=== PATIENT | male | born 1955 | race Hispanic/Latino ===

== ENCOUNTER → 2023-01-01 | Outpatient (CLI) | payer OTHER ==
[~2023-01-01] MED LIST: ALLO300T2 PO; BISA-72 PO; GADOTERATE MEGLUMINE 10 MMOL/20 ML VIAL IV ONE; MECL-160 PO; METF-446 PO; PREG75CA75 PO; ROSU20TA31 PO; TAMS-1 PO; TIZA2CAP9 PO; TRAM-355 PO
== END | disposition home or self-care (01) ==
LOC: RAH 08:15
PROVIDERS: ATTEND Family Medicine
DX: M48.061 Spinal stenosis, lumbar region without neurogenic claudication (principal); G06.2 Extradural and subdural abscess, unspecified; M86.9 Osteomyelitis, unspecified
CPT/HCPCS: 72158; A9575

== ENCOUNTER → 2023-05-12 | Outpatient (CLI) | payer OTHER ==
[~2023-05-12] MED LIST changes: -GADOTERATE MEGLUMINE 10 MMOL/20 ML VIAL IV ONE; -ROSU20TA31 PO; +ROSU20TA73 PO
== END | disposition home or self-care (01) ==
LOC: LAB 14:16
PROVIDERS: ATTEND Family Medicine
DX: M86.40 Chronic osteomyelitis with draining sinus, unspecified site (principal); M86.9 Osteomyelitis, unspecified
CPT/HCPCS: 36415; 82565; 84520

== ENCOUNTER → 2023-05-14 | Outpatient (CLI) | payer OTHER ==
[~2023-05-14] MED LIST changes: +GADOTERATE MEGLUMINE 10 MMOL/20 ML VIAL IV ONE
== END | disposition home or self-care (01) ==
LOC: RAH 10:37
PROVIDERS: ATTEND Family Medicine
DX: M47.816 Spondylosis without myelopathy or radiculopathy, lumbar region (principal); M48.061 Spinal stenosis, lumbar region without neurogenic claudication; M86.9 Osteomyelitis, unspecified
CPT/HCPCS: 72158; A9575

== ENCOUNTER 2023-08-28 05:42 | Day surgery (SDC) | payer OTHER ==
[2023-08-26 11:56] LABS: CREATININE 1.5 mg/dL (0.5-1.5); POTASSIUM 4.4 mmol/L (3.5-5.1)
[2023-08-26 12:00] LABS: INR 1.04 (0.85-1.15)
[2023-08-26 12:01] LABS: PARTIAL THROMBOPLASTIN TIME 31.3 SEC (26.3-35.5)
[2023-08-26 12:29] VITALS: BP 108/66; PULSE 71; RESP 18
[~2023-08-28] VITALS: Ht 182.9 cm; Wt 118.8 kg
[2023-08-28] VITALS (8 sets, daily range): BP systolic 112–139; BP diastolic 68–75; PULSE 60–65; RESP 14–16
[~2023-08-28 05:42] MED LIST changes: +ALPR1TAB2 PO; +ASPI-1012 PO; +ATOR40TA71 PO; -BISA-72 PO; +DOCU-280 PO; +FAMO20TA8 PO; +FURO20TA4 PO; -GADOTERATE MEGLUMINE 10 MMOL/20 ML VIAL IV ONE; +GARL1000 PO; +HYDR-4068 PO; +IRON150C5 PO; -MECL-160 PO; +OLME5TAB29 PO; +POTA-202 PO; -PREG75CA75 PO; +PREG75CA76 PO; -ROSU20TA73 PO; -TIZA2CAP9 PO; -TRAM-355 PO; +VITA100049 PO; +[UNRECOGNIZED DRUG - OTHER] PO
[2023-08-28] MEDS ORDERED: IOHEXOL 180 MG/ML 20 ML VIAL ONE (07:08)
== END 2023-08-28 10:40 | disposition home or self-care (01) ==
LOC: DAH 05:42 → EDSTATUS 11:00
PROVIDERS: ATTEND Neurological Surgery
DX: M48.061 Spinal stenosis, lumbar region without neurogenic claudication (principal); M47.817 Spondylosis without myelopathy or radiculopathy, lumbosacral region; G03.8 Meningitis due to other specified causes; G06.1 Intraspinal abscess and granuloma; E11.9 Type 2 diabetes mellitus without complications; Z79.84 Long term (current) use of oral hypoglycemic drugs; Z79.82 Long term (current) use of aspirin; Z79.01 Long term (current) use of anticoagulants; Z79.899 Other long term (current) drug therapy
CPT/HCPCS: 80048; 85610; 85730; 36415; 62304; 72132; 82948; Q9965; A4215; A4222; A4221; A4663; A4216; A4606; A4223 ×3

== ENCOUNTER 2023-09-17 05:56 | Observation (INO) | payer OTHER ==
[2023-09-15 11:50] LABS: BASOPHILS % (AUTO) 0.8 % (0.0-5.0); EOSINOPHILS # (AUTO) 0.32 K/uL (0.00-0.70); EOSINOPHILS % (AUTO) 2.6 % (0.0-8.0); HEMATOCRIT 44.3 % (42-54); IMMATURE GRANULOCYTE ABSOLUTE 0.06 K/uL (0-1); LYMPHOCYTES # (AUTO) 2.5 K/uL (1.0-4.8); LYMPHOCYTES % (AUTO) 19.6 % (21.0-51.0); MEAN CORPUSCULAR HGB CONC 31.2 g/dL (32.0-36.0); MONOCYTES # (AUTO) 1.1 K/uL (0.1-1.0); MONOCYTES % (AUTO) 8.5 % (3.0-13.0); NEUTROPHILS # (AUTO) 8.5 K/uL (1.8-7.7); PLATELET COUNT (AUTO) 366 K/uL (130-400); RED BLOOD CELL COUNT(AUTO) 4.92 MIL/uL (4.50-6.20); RED CELL DISTRIBUTION WIDTH 14.2 % (11.0-15.5); WHITE BLOOD COUNT (AUTO) 12.5 K/uL (4.8-10.8)
[2023-09-15 12:13] LABS: CREATININE 1.7 mg/dL (0.5-1.5)
[2023-09-15 14:39] VITALS: BP 93/55; PULSE 73; RESP 16
[2023-09-17] VITALS (25 sets, daily range): BP systolic 91–128; BP diastolic 54–80; PULSE 56–90; RESP 12–21; O2SAT 98
[~2023-09-17] VITALS: Ht 182.9 cm; Wt 118.1 kg
[~2023-09-17 05:56] MED LIST changes: +ALLO100T PO; -ALLO300T2 PO; -FAMO20TA8 PO; +METF-444 PO; -METF-446 PO; +PREG100C56 PO; -PREG75CA76 PO
[2023-09-17] MEDS ORDERED: CEFAZOLIN SODIUM 2 GM VIAL ONE (06:15)
[2023-09-17] MEDS ORDERED: CEFAZOLIN SODIUM 1 GM VIAL ONE ×2 (06:15→06:49)
[2023-09-17] MEDS ORDERED: 0.9%NACL 1000ML 1,000 ML IV ONE (06:15)
[2023-09-17] MEDS ORDERED: LIDOCAINE PF 100MG/5ML (2%) SYRINGE 5ML ONE (06:46)
[2023-09-17] MEDS ORDERED: SUCCINYLCHOLINE CHLORIDE 20 MG/ML 10 ML VIAL ONE (06:46)
[2023-09-17] MEDS ORDERED: MIDAZOLAM HCL 1 MG/ML 2ML VIAL ONE (06:47)
[2023-09-17] MEDS ORDERED: ONDANSETRON 4MG INJ ONE ×2 (06:47→06:51)
[2023-09-17] MEDS ORDERED: PROPOFOL 10 MG/ML 20ML VIAL IV ONE ×2 (06:47→06:50)
[2023-09-17] MEDS ORDERED: NEOSTIGMINE 5MG/5ML SYR IV ONE (06:47)
[2023-09-17] MEDS ORDERED: DEXAMETHASONE SOD PHOSPHATE 10MG/ML 1ML VIAL ONE ×2 (06:47→06:51)
[2023-09-17] MEDS ORDERED: GLYCOPYRROLATE 1 MG/5 ML SYRINGE ONE (06:47)
[2023-09-17] MEDS ORDERED: MORPHINE PF 100MG/10ML AMP IV ONE (06:48)
[2023-09-17] MEDS ORDERED: ROCURONIUM 10MG/1ML SYR 10 MG/ML ML ONE ×2 (06:48→07:13)
[2023-09-17] MEDS ORDERED: FENTANYL CITRATE PF 50 MCG/1 ML 2ML VIAL ONE (06:48)
[2023-09-17] MEDS ORDERED: THROMBIN-JMI 20000 UNIT KIT TP ONE (06:49)
[2023-09-17 06:54] LABS: BASOPHILS # (AUTO) 0.09 K/uL (0.00-0.20); BASOPHILS % (AUTO) 0.8 % (0.0-5.0); EOSINOPHILS # (AUTO) 0.35 K/uL (0.00-0.70); EOSINOPHILS % (AUTO) 3.2 % (0.0-8.0); IMMATURE GRANULOCYTE ABSOLUTE 0.06 K/uL (0-1); LYMPHOCYTES # (AUTO) 2.7 K/uL (1.0-4.8); LYMPHOCYTES % (AUTO) 24.5 % (21.0-51.0); MEAN CORPUSCULAR HEMOGLOBIN 28.3 pg (27.0-33.0); MEAN CORPUSCULAR HGB CONC 32.2 g/dL (32.0-36.0); MONOCYTES # (AUTO) 0.8 K/uL (0.1-1.0); MONOCYTES % (AUTO) 7.1 % (3.0-13.0); NEUTROPHILS # (AUTO) 7.1 K/uL (1.8-7.7); NEUTROPHILS % (AUTO) 63.9 % (40.0-77.0); PLATELET COUNT (AUTO) 281 K/uL (130-400); RED BLOOD CELL COUNT(AUTO) 4.66 MIL/uL (4.50-6.20); RED CELL DISTRIBUTION WIDTH 14.3 % (11.0-15.5)
[2023-09-17] MEDS ORDERED: LIDOCAINE 2%-EPI PF 30 ML+BUPIVACAINE/PF 0.25% 30ML /60ML SYR IJ SCH ×2 (07:00)
[2023-09-17 07:05] LABS: CREATININE 1.5 mg/dL (0.5-1.5); POTASSIUM 4.6 mmol/L (3.5-5.1)
[2023-09-17] MEDS ORDERED: PHENYLEPHRINE HCL 10 MG/ML 1ML VIAL IV ONE ×3 (07:15→10:51)
[2023-09-17] MEDS ORDERED: FENTANYL CITRATE PF 50 MCG/1 ML 20ML VIAL IJ ONE (07:24)
[2023-09-17] MEDS ORDERED: ARTIFICIAL TEARS 3.5 GM OINTMENT ONE (07:25)
[2023-09-17] MEDS ORDERED: CEFAZOLIN SODIUM 3 GM VIAL IVPB ONE (07:40)
[2023-09-17] MEDS ORDERED: THROMBIN 20000 UNITS/VIAL POWDER TP ONE (08:12)
[2023-09-17] MEDS ORDERED: CEFAZOLIN SODIUM 1 GM VIAL IRRIG ONE (08:12)
[2023-09-17] MEDS ORDERED: BUPIVACAINE/EPI/PF 0.5% 30ML VIAL IJ ONE (08:12)
[2023-09-17] MEDS ORDERED: MORPHINE 10MG VIAL IM ONE (08:12)
[2023-09-17] MEDS ORDERED: SUGAMMADEX SODIUM 200 MG/2 ML VIAL IV ONE (11:07)
[2023-09-17] MEDS ORDERED: ALPRAZOLAM 1 MG TAB PO PRN (11:30)
[2023-09-17] MEDS ORDERED: PROMETHAZINE HCL 25 MG/ML 1ML AMPULE IM PRN (11:30)
[2023-09-17] MEDS: DEXAMETHASONE SOD PHOSPHATE 4 MG/ML 1ML VIAL IVP SCH ×3 (11:30→23:18)
[2023-09-17] MEDS ORDERED: MORPHINE 2 MG SYG IVP PRN (11:30)
[2023-09-17] MEDS ORDERED: 0.9%NACL 10ML VIAL IVP PRN (11:30)
[2023-09-17] MEDS ORDERED: HYDROCODONE/ACETAMINOPHEN 10/325 MG TAB PO PRN (11:30)
[2023-09-17] MEDS ORDERED: HYDROCODONE/ACETAMINOPHEN 5/325 MG TAB PO PRN (11:30)
[2023-09-17] MEDS ORDERED: PHARMACY COMMUNICATION MISC SCH (12:30)
[2023-09-17] MEDS: LACTATED RINGERS 1000ML 1,000 ML IV SCH ×2 (13:09→23:18)
[2023-09-17] MEDS: PREGABALIN 100 MG CAPSULE PO SCH ×2 (15:18→20:20)
[2023-09-17] MEDS ORDERED: CEFAZOLIN SODIUM 3 GM in DEXTROSE 5%-WATER 100 ML IVPB SCH (16:00)
[2023-09-17] MEDS: ALLOPURINOL 100 MG TABLET PO SCH (20:20)
[2023-09-17] MEDS: ATORVASTATIN 40 MG TABLET PO SCH (20:20)
[2023-09-17] MEDS: TAMSULOSIN HCL 0.4 MG CAP.ER.24H PO SCH (20:20)
[2023-09-17] MEDS: DOCUSATE SODIUM 100 MG CAP PO SCH (20:20)
[2023-09-17] MEDS: METFORMIN HCL 500 MG TABLET PO SCH (20:20)
[2023-09-17] MEDS: FUROSEMIDE 20 MG TABLET PO SCH (20:23)
[2023-09-17] MEDS ORDERED: NON-FORMULARY MEDICATION 1 EACH (Olmesartan Medoxomil 5 MG) PO SCH (21:00)
[2023-09-18 04:00] VITALS: BP 105/57; PULSE 65; RESP 17
[2023-09-18] MEDS: DEXAMETHASONE SOD PHOSPHATE 4 MG/ML 1ML VIAL IVP SCH ×4 (05:34→22:53)
[2023-09-18 08:41] VITALS: BP 108/50; PULSE 68; RESP 16
[2023-09-18] MEDS ORDERED: [UNRECOGNIZED DRUG - OTHER] PO SCH (09:00)
[2023-09-18] MEDS ORDERED: ASPIRIN 325 MG PO SCH (09:00)
[2023-09-18] MEDS ORDERED: GARLIC 1000 MG PO SCH (09:00)
[2023-09-18] MEDS ORDERED: NON-FORMULARY MEDICATION 1 EACH (Vitamin E Mixed (Vitamin E) 1,000 UNIT) PO SCH (09:00)
[2023-09-18] MEDS: LOSARTAN 25 MG TABLET PO SCH (09:02)
[2023-09-18] MEDS: TAMSULOSIN HCL 0.4 MG CAP.ER.24H PO SCH ×2 (09:03→20:41)
[2023-09-18] MEDS: KCL 20 MEQ ERTAB PO SCH (09:03)
[2023-09-18] MEDS: DOCUSATE SODIUM 100 MG CAP PO SCH ×2 (09:03→20:42)
[2023-09-18] MEDS: IRON POLYSACCHARIDES COMPLEX 150 MG CAPSULE PO SCH (09:03)
[2023-09-18] MEDS: PREGABALIN 100 MG CAPSULE PO SCH ×3 (09:03→20:42)
[2023-09-18] MEDS: METFORMIN HCL 500 MG TABLET PO SCH ×2 (09:03→20:41)
[2023-09-18 12:00] VITALS: BP 112/51; PULSE 70; RESP 19
[2023-09-18] MEDS: CEFTRIAXONE 1G VIAL IVPB SCH (12:03)
[2023-09-18] MEDS: LACTATED RINGERS 1000ML 1,000 ML IV SCH (14:10)
[2023-09-18] MEDS ORDERED: MECLIZINE HCL 12.5 MG TABLET PO PRN (14:30)
[2023-09-18 16:00] VITALS: BP 117/69; PULSE 55; RESP 18
[2023-09-18] MEDS: INSULIN HUMULIN R 100 UNIT/ML 3ML SQ SCH ×2 (16:45→20:44)
[2023-09-18 20:00] VITALS: BP 116/68; PULSE 55; RESP 18; O2SAT 97
[2023-09-18] MEDS: ALLOPURINOL 100 MG TABLET PO SCH (20:41)
[2023-09-18] MEDS: FUROSEMIDE 20 MG TABLET PO SCH (20:41)
[2023-09-18] MEDS: ATORVASTATIN 40 MG TABLET PO SCH (20:42)
[2023-09-19] VITALS: BP 117/68; PULSE 53; RESP 18
[2023-09-19 04:00] VITALS: BP 107/65; PULSE 60; RESP 18
[2023-09-19 04:11] LABS: BASOPHILS # (AUTO) 0.02 K/uL (0.00-0.20); BASOPHILS % (AUTO) 0.1 % (0.0-5.0); HEMATOCRIT 35.9 % (42-54); IMMATURE GRANULOCYTE ABSOLUTE 0.17 K/uL (0-1); LYMPHOCYTES # (AUTO) 1.3 K/uL (1.0-4.8); MEAN CORPUSCULAR HEMOGLOBIN 28.5 pg (27.0-33.0); MEAN CORPUSCULAR HGB CONC 32.6 g/dL (32.0-36.0); MEAN CORPUSCULAR VOLUME 87.3 fL (79-99); MONOCYTES # (AUTO) 0.7 K/uL (0.1-1.0); MONOCYTES % (AUTO) 3.7 % (3.0-13.0); NEUTROPHILS # (AUTO) 16.5 K/uL (1.8-7.7); NEUTROPHILS % (AUTO) 88.3 % (40.0-77.0); PLATELET COUNT (AUTO) 281 K/uL (130-400); RED BLOOD CELL COUNT(AUTO) 4.11 MIL/uL (4.50-6.20); RED CELL DISTRIBUTION WIDTH 14.3 % (11.0-15.5); WHITE BLOOD COUNT (AUTO) 18.7 K/uL (4.8-10.8)
[2023-09-19 04:31] LABS: HEMOGLOBIN A1C 6.9 % (4.0-6.0)
[2023-09-19 04:32] LABS: ALBUMIN 2.6 g/dL (3.5-5.0); BILIRUBIN,TOTAL 0.2 mg/dL (0.2-1.0); CREATININE 1.3 mg/dL (0.5-1.5); MAGNESIUM 1.6 mg/dL (1.80-2.40); POTASSIUM 4.6 mmol/L (3.5-5.1)
[2023-09-19 04:39] LABS: WBC MORPHOLOGY CONSISTENT W/DIFF
[2023-09-19] MEDS: DEXAMETHASONE SOD PHOSPHATE 4 MG/ML 1ML VIAL IVP SCH ×2 (05:20→11:53)
[2023-09-19] MEDS: INSULIN HUMULIN R 100 UNIT/ML 3ML SQ SCH ×2 (06:10→11:30)
[2023-09-19] MEDS ORDERED: FUROSEMIDE 20 MG TABLET PO SCH (07:30)
[2023-09-19 08:00] VITALS: BP 116/71; PULSE 58; RESP 14; O2SAT 96
[2023-09-19] MEDS: PREGABALIN 100 MG CAPSULE PO SCH ×2 (08:55→14:21)
[2023-09-19] MEDS: METFORMIN HCL 500 MG TABLET PO SCH (08:55)
[2023-09-19] MEDS: TAMSULOSIN HCL 0.4 MG CAP.ER.24H PO SCH (08:55)
[2023-09-19] MEDS: LOSARTAN 25 MG TABLET PO SCH (08:55)
[2023-09-19] MEDS: DOCUSATE SODIUM 100 MG CAP PO SCH (08:55)
[2023-09-19] MEDS: IRON POLYSACCHARIDES COMPLEX 150 MG CAPSULE PO SCH (08:55)
[2023-09-19] MEDS: KCL 20 MEQ ERTAB PO SCH (08:56)
[2023-09-19] MEDS ORDERED: MAGNESIUM 2GM PREMIX 50ML 50 ML IV PRN (11:00)
[2023-09-19 12:00] VITALS: BP 121/69; PULSE 53; RESP 16
[2023-09-19] MEDS: CEFTRIAXONE 1G VIAL IVPB SCH (13:36)
[2023-09-19 16:00] VITALS: BP 129/74; PULSE 52; RESP 17
== END 2023-09-19 16:00 ==
LOC: DAH 05:56 → DAHIP 05:57 → DAH 05:57 → EDSTATUS 11:00 → 4AH 12:30
PROVIDERS: ADMIT Neurological Surgery; ATTEND Neurological Surgery
DX: M48.062 Spinal stenosis, lumbar region with neurogenic claudication (principal); M46.98 Unspecified inflammatory spondylopathy, sacral and sacrococcygeal region; I10 Essential (primary) hypertension; E11.9 Type 2 diabetes mellitus without complications; E78.2 Mixed hyperlipidemia; I25.2 Old myocardial infarction; M48.061 Spinal stenosis, lumbar region without neurogenic claudication; N39.0 Urinary tract infection, site not specified; M46.40 Discitis, unspecified, site unspecified; G06.2 Extradural and subdural abscess, unspecified; G82.20 Paraplegia, unspecified
CPT/HCPCS: 80048 ×2; 85025 ×3; 36415 ×3; 71045; 63047; 63048 ×2; 96376 ×3; 96365; 96375 ×3; 87070; 87076; 87077 ×2; 87088; 87186 ×2; 82948 ×11; 72020; 96372; 97161; 97116 ×2; 97530 ×2; 83036; 83735; 80053; A6260; G0378 ×49; A4510; A4663; J7120; A4344; J0690 ×6; J3490 ×4; J1100 ×10; J2710; J0330; J7030; J0665; J2001; J2250; J7060; J2704 ×2; J2274; J2405 ×2; J3010; J2371 ×3; J2270; A6219; A4215; A4223; A4222; A4221; A4600; J0696 ×2; J3475

== ENCOUNTER 2024-05-23 18:29 | Inpatient (IN) | payer OTHER ==
[~2024-05-23] VITALS: Ht 182.9 cm; Wt 123.3 kg
[~2024-05-23 18:29] MED LIST changes: -ALPR1TAB2 PO; +DICY20TA2 PO; +FAMO20TA8 PO; +FERR325T29 PO; -GARL1000 PO; -HYDR-4068 PO; -IRON150C5 PO; +LEVO750T68 PO; -METF-444 PO; +METF-527 PO; -VITA100049 PO; -[UNRECOGNIZED DRUG - OTHER] PO
[2024-05-23 19:10] LABS: BASOPHILS # (AUTO) 0.06 K/uL (0.00-0.20); BASOPHILS % (AUTO) 0.3 % (0.0-5.0); EOSINOPHILS # (AUTO) 0.06 K/uL (0.00-0.70); EOSINOPHILS % (AUTO) 0.3 % (0.0-8.0); HEMATOCRIT 38.9 % (42-54); IMMATURE GRANULOCYTE ABSOLUTE 0.12 K/uL (0-1); LYMPHOCYTES # (AUTO) 1.4 K/uL (1.0-4.8); LYMPHOCYTES % (AUTO) 7.7 % (21.0-51.0); MEAN CORPUSCULAR HEMOGLOBIN 27.1 pg (27.0-33.0); MEAN CORPUSCULAR HGB CONC 31.4 g/dL (32.0-36.0); MEAN CORPUSCULAR VOLUME 86.4 fL (79-99); MONOCYTES # (AUTO) 1.7 K/uL (0.1-1.0); MONOCYTES % (AUTO) 9.8 % (3.0-13.0); NEUTROPHILS # (AUTO) 14.3 K/uL (1.8-7.7); NEUTROPHILS % (AUTO) 81.2 % (40.0-77.0); PLATELET COUNT (AUTO) 170 K/uL (130-400); RED CELL DISTRIBUTION WIDTH 15.5 % (11.0-15.5); WHITE BLOOD COUNT (AUTO) 17.6 K/uL (4.8-10.8)
[2024-05-23 19:13] LABS: POTASSIUM 4.8 mmol/L (3.5-5.1)
[2024-05-23 19:17] LABS: ALBUMIN 2.5 g/dL (3.5-5.0); BILIRUBIN,TOTAL 0.7 mg/dL (0.2-1.0); TOTAL PROTEIN, SERUM 7.1 g/dL (6.0-8.3)
[2024-05-23] MEDS: ACETAMINOPHEN 500 MG TABLET PO ONE (19:26)
[2024-05-23] MEDS: 0.9%NACL 1000ML 2,328 ML IV ONE (19:26)
[2024-05-23 20:26] VITALS: TEMP 100.6
[2024-05-23] MEDS: MIDODRINE HCL 5 MG TABLET ONE (21:59)
[2024-05-23] MEDS: MIDODRINE HCL 5 MG TABLET PO ONE (22:00)
[2024-05-23] MEDS: CEFTRIAXONE 1G VIAL IVPB ONE (22:01)
[2024-05-23] MEDS: LACTATED RINGERS 1000ML IV ONE (22:01)
[2024-05-23 22:11] LABS: APPEARANCE,URINE TURBID (CLEAR); BILIRUBIN,URINE NEGATIVE (NEGATIVE); COLOR,URINE LIGHT-ORANGE (YELLOW); GLUCOSE, URINE (UA) NEGATIVE (NEGATIVE); KETONES,URINE NEGATIVE (NEGATIVE); LEUKOCYTE ESTERASE ,URINE 500 Leu/uL (NEGATIVE); NITRATE,URINE NEGATIVE (NEGATIVE); OCCULT BLOOD,URINE LARGE (NEGATIVE); PH,URINE 5.5 (5.0-8.0); PROTEIN,URINE 100 mg/dL (NEGATIVE); UROBILINOGEN,URINE 0.2 mg/dL (0.2-1.0)
[2024-05-23 22:14] LABS: ADD UA MICROSCOPIC YES
[2024-05-23 22:21] LABS: BACTERIA,URINE MANY /HPF (None Seen); SQUAMOUS EPITHELIAL CELL,UR 0-2 /HPF (0-2); WBC CLUMP MANY /HPF (0-1); WBC,URINE TNTC /HPF (0-1)
[2024-05-23] MEDS ORDERED: ALBUTEROL 0.083% 2.5 MG/3 ML INH IH PRN (23:00)
[2024-05-23] MEDS ORDERED: NOREPINEPHRIN 4MG/NS 250ML 250 ML IV PRN (23:00)
[2024-05-23] MEDS ORDERED: HYDROCODONE/ACETAMINOPHEN 5/325 MG TAB PO PRN (23:00)
[2024-05-23] MEDS ORDERED: ACETAMINOPHEN 650 MG SUPPOSITORY RC PRN (23:00)
[2024-05-23] MEDS: NOREPINEPHRIN 4MG/NS 250ML 250 ML IV SCH (23:25)
[2024-05-23 23:26] VITALS: RESP 19; O2SAT 98
[2024-05-23] MEDS: NOREPINEPHRIN 4MG/NS 250ML 250 ML IV ONE (23:26)
[2024-05-24] VITALS (83 sets, daily range): BP systolic 92–148; BP diastolic 43–99; PULSE 60–103; RESP 10–42; O2SAT 96–98
[2024-05-24] MEDS ORDERED: VANCOMYCIN PROTOCOL PER PHARMACY IV SCH (00:30)
[2024-05-24] MEDS ORDERED: CEFEPIME HCL 2 GM VIAL IVPB SCH (00:30)
[2024-05-24] MEDS: LACTATED RINGERS 1000ML 1,000 ML IV SCH (01:27)
[2024-05-24] MEDS: CEFEPIME HCL 2 GM VIAL IVPB SCH (01:27)
[2024-05-24 03:13] LABS: SARS-CoV-2, RNA, NAAT NEGATIVE SARS CoV-2 (NEGATIVE)
[2024-05-24 03:18] LABS: INFLUENZA TYPE A Negative For Type A (NEGATIVE); INFLUENZA TYPE B Negative For Type B (NEGATIVE)
[2024-05-24 05:41] LABS: BASOPHILS # (AUTO) 0.04 K/uL (0.00-0.20); BASOPHILS % (AUTO) 0.2 % (0.0-5.0); EOSINOPHILS # (AUTO) 0.13 K/uL (0.00-0.70); EOSINOPHILS % (AUTO) 0.8 % (0.0-8.0); HEMATOCRIT 37.2 % (42-54); IMMATURE GRANULOCYTE ABSOLUTE 0.09 K/uL (0-1); LYMPHOCYTES # (AUTO) 1.2 K/uL (1.0-4.8); LYMPHOCYTES % (AUTO) 7.6 % (21.0-51.0); MEAN CORPUSCULAR HEMOGLOBIN 27.1 pg (27.0-33.0); MEAN CORPUSCULAR HGB CONC 30.9 g/dL (32.0-36.0); MEAN CORPUSCULAR VOLUME 87.7 fL (79-99); MONOCYTES # (AUTO) 1.4 K/uL (0.1-1.0); MONOCYTES % (AUTO) 8.8 % (3.0-13.0); NEUTROPHILS # (AUTO) 13.2 K/uL (1.8-7.7); PLATELET COUNT (AUTO) 151 K/uL (130-400); RED BLOOD CELL COUNT(AUTO) 4.24 MIL/uL (4.50-6.20); RED CELL DISTRIBUTION WIDTH 15.4 % (11.0-15.5); WHITE BLOOD COUNT (AUTO) 16.2 K/uL (4.8-10.8)
[2024-05-24 06:06] LABS: CREATININE 2.6 mg/dL (0.5-1.3); PHOSPHORUS 3.5 mg/dL (2.5-4.9); POTASSIUM 4.5 mmol/L (3.5-5.1); THYROID STIMULATING HORMONE 3.96 uIU/mL (0.36-3.74)
[2024-05-24] MEDS: MAGNESIUM 2GM PREMIX 50ML 100 ML IV ONE (06:27)
[2024-05-24] MEDS ORDERED: MAGNESIUM 2GM PREMIX 50ML 50 ML IV SCH (06:30)
[2024-05-24] MEDS: INSULIN HUMULIN R 100 UNIT/ML 3ML SQ SCH (07:30)
[2024-05-24] MEDS: VANCOMYCIN 2GM/500 ML BAG 500 ML IV ONE (08:35)
[2024-05-24] MEDS: ASCORBIC ACID 500 MG TAB PO SCH (08:35)
[2024-05-24] MEDS: POLYETHYLENE GLYCOL 3350 17 GM POWD.PACK PO SCH (08:40)
[2024-05-24] MEDS: MAGNESIUM 2GM PREMIX 50ML 50 ML IV SCH (08:43)
[2024-05-24] MEDS ORDERED: CEFTRIAXONE 1G VIAL IV SCH (09:00)
[2024-05-24] MEDS: VANCOMYCIN 500MG+NS 100ML IV SCH (12:16)
[2024-05-24] MEDS: ACETAMINOPHEN 325 MG TAB PO PRN (12:35)
[2024-05-24] MEDS: MIDODRINE HCL 5 MG TABLET PO SCH (12:56)
[2024-05-24] MEDS: MIDODRINE HCL 5 MG TABLET ONE (12:57)
[2024-05-24] MEDS: CEFEPIME HCL 1 GM VIAL IVPB SCH (14:25)
[2024-05-24] MEDS ORDERED: LACE ASSESSMENT (SCORE > 11) MISC SCH (15:30)
[2024-05-24] MEDS: PREGABALIN 100 MG CAPSULE PO PRN (16:10)
[2024-05-24] MEDS: DOCUSATE SODIUM 100 MG CAP PO SCH (20:17)
[2024-05-24] MEDS: ATORVASTATIN 40 MG TABLET PO SCH (20:17)
[2024-05-25] VITALS (8 sets, daily range): BP systolic 109–149; BP diastolic 58–75; PULSE 20–70; RESP 11–20; O2SAT 96–98
[2024-05-25] MEDS: TAMSULOSIN HCL 0.4 MG CAP.ER.24H PO SCH (08:51)
[2024-05-25] MEDS: ASPIRIN 325MG TAB PO SCH (08:51)
[2024-05-25] MEDS: PANTOPRAZOLE 40 MG/VIAL IVP SCH (08:51)
[2024-05-25] MEDS: FERROUS SULFATE 325 MG TABLET.DR PO SCH (08:52)
[2024-05-25] MEDS: ENOXAPARIN SODIUM 30 MG/0.3 ML SQ SCH (08:52)
[2024-05-25 11:15] LABS: BASOPHILS # (AUTO) 0.06 K/uL (0.00-0.20); BASOPHILS % (AUTO) 0.8 % (0.0-5.0); EOSINOPHILS # (AUTO) 0.44 K/uL (0.00-0.70); EOSINOPHILS % (AUTO) 6.1 % (0.0-8.0); HEMATOCRIT 34.2 % (42-54); IMMATURE GRANULOCYTE ABSOLUTE 0.03 K/uL (0-1); LYMPHOCYTES # (AUTO) 1.2 K/uL (1.0-4.8); LYMPHOCYTES % (AUTO) 16.4 % (21.0-51.0); MEAN CORPUSCULAR HEMOGLOBIN 27.5 pg (27.0-33.0); MEAN CORPUSCULAR VOLUME 88.6 fL (79-99); MONOCYTES # (AUTO) 0.7 K/uL (0.1-1.0); MONOCYTES % (AUTO) 9.5 % (3.0-13.0); NEUTROPHILS # (AUTO) 4.9 K/uL (1.8-7.7); NEUTROPHILS % (AUTO) 66.8 % (40.0-77.0); PLATELET COUNT (AUTO) 146 K/uL (130-400); RED BLOOD CELL COUNT(AUTO) 3.86 MIL/uL (4.50-6.20); RED CELL DISTRIBUTION WIDTH 15.4 % (11.0-15.5); WHITE BLOOD COUNT (AUTO) 7.3 K/uL (4.8-10.8)
[2024-05-25 11:28] LABS: ALBUMIN 1.9 g/dL (3.5-5.0); BILIRUBIN,TOTAL 0.4 mg/dL (0.2-1.0); CREATININE 2.5 mg/dL (0.5-1.3); POTASSIUM 4.2 mmol/L (3.5-5.1)
[2024-05-25] MEDS: POLYETHYLENE GLYCOL 3350 17 GM POWD.PACK PO SCH (20:44)
[2024-05-26] VITALS (10 sets, daily range): BP systolic 127–146; BP diastolic 66–84; PULSE 54–77; RESP 16–20; O2SAT 98
[2024-05-26 05:21] LABS: BASOPHILS # (AUTO) 0.06 K/uL (0.00-0.20); BASOPHILS % (AUTO) 0.8 % (0.0-5.0); EOSINOPHILS # (AUTO) 0.54 K/uL (0.00-0.70); EOSINOPHILS % (AUTO) 7.6 % (0.0-8.0); IMMATURE GRANULOCYTE ABSOLUTE 0.04 K/uL (0-1); LYMPHOCYTES # (AUTO) 1.6 K/uL (1.0-4.8); LYMPHOCYTES % (AUTO) 23.1 % (21.0-51.0); MEAN CORPUSCULAR HEMOGLOBIN 26.5 pg (27.0-33.0); MEAN CORPUSCULAR HGB CONC 30.3 g/dL (32.0-36.0); MEAN CORPUSCULAR VOLUME 87.6 fL (79-99); MONOCYTES # (AUTO) 0.7 K/uL (0.1-1.0); NEUTROPHILS # (AUTO) 4.1 K/uL (1.8-7.7); NEUTROPHILS % (AUTO) 57.9 % (40.0-77.0); PLATELET COUNT (AUTO) 162 K/uL (130-400); RED BLOOD CELL COUNT(AUTO) 3.88 MIL/uL (4.50-6.20); RED CELL DISTRIBUTION WIDTH 15.4 % (11.0-15.5); WHITE BLOOD COUNT (AUTO) 7.1 K/uL (4.8-10.8)
[2024-05-26 05:45] LABS: ALBUMIN 1.9 g/dL (3.5-5.0); BILIRUBIN,TOTAL 0.3 mg/dL (0.2-1.0); CREATININE 2.3 mg/dL (0.5-1.3); MAGNESIUM 1.4 mg/dL (1.80-2.40); POTASSIUM 4.1 mmol/L (3.5-5.1); TOTAL PROTEIN, SERUM 6.2 g/dL (6.0-8.3)
[2024-05-26] MEDS ORDERED: MAGNESIUM 2GM PREMIX 50ML 50 ML IV SCH (08:00)
[2024-05-26 10:15] LABS: HEMOGLOBIN A1C 6.5 % (4.0-6.0)
[2024-05-26 10:43] LABS: CHOLESTEROL 79 mg/dL (<200); HDL CHOLESTEROL 20 mg/dL (29-71); LDL DIRECT 45 mg/dL (0-99); TRIGLYCERIDES 142 mg/dL (30-200)
[2024-05-26] MEDS ORDERED: COMPOUND IV MISC 1 EACH IVSOLN MISC PRN (12:30)
[2024-05-26] MEDS: MEROPENEM 1 GM in 0.9%NACL 100ML 100 ML IV SCH (13:08)
[2024-05-26 16:21] LABS: INR 1.03 (0.85-1.15); PROTHROMBIN TIME 11.1 SEC (9.6-11.6)
[2024-05-26 16:23] LABS: PARTIAL THROMBOPLASTIN TIME 33.3 SEC (26.3-35.5)
[2024-05-27] VITALS (7 sets, daily range): BP systolic 129–151; BP diastolic 75–84; PULSE 58–65; RESP 18–19; O2SAT 98
[2024-05-27] MEDS ORDERED: NEOMY SULF/BACITRA/POLYMYXIN B 3.5 GM OINT OD SCH (14:00)
[2024-05-27] MEDS: NEOMYCIN/POLYMYXIN B/DEXAMETHASONE 5 ML OPHTH SUSP OD SCH (14:42)
[2024-05-27] MEDS ORDERED: NEOMYCIN/POLYMYXIN B/DEXAMETHASONE 5 ML OPHTH SUSP OP SCH (15:00)
[2024-05-28] VITALS: BP 148/74; PULSE 60; RESP 18
[2024-05-28 04:00] VITALS: BP 116/58; PULSE 63; RESP 18
[2024-05-28 05:15] LABS: HEMATOCRIT 35.1 % (42-54); MEAN CORPUSCULAR HEMOGLOBIN 26.5 pg (27.0-33.0); MEAN CORPUSCULAR HGB CONC 30.8 g/dL (32.0-36.0); MEAN CORPUSCULAR VOLUME 86.2 fL (79-99); RED BLOOD CELL COUNT(AUTO) 4.07 MIL/uL (4.50-6.20); RED CELL DISTRIBUTION WIDTH 15.1 % (11.0-15.5); WHITE BLOOD COUNT (AUTO) 7.5 K/uL (4.8-10.8)
[2024-05-28 05:25] LABS: CREATININE 2.1 mg/dL (0.5-1.3); MAGNESIUM 1.6 mg/dL (1.80-2.40); POTASSIUM 4.1 mmol/L (3.5-5.1)
[2024-05-28 08:19] VITALS: BP 120/59; PULSE 57; RESP 18
[2024-05-28 08:35] VITALS: O2SAT 97
[2024-05-28 11:43] VITALS: BP 140/74; PULSE 60; RESP 18
[2024-05-28 16:16] VITALS: BP 144/80; PULSE 56; RESP 18
== END 2024-05-28 16:40 | DRG 871 ==
LOC: EDH 18:29 → EDHIP 22:36 → 2CV 05-24 04:58 → 3DH 05-25 22:42
PROVIDERS: ADMIT Internal Medicine; ATTEND Internal Medicine
DX: A41.50 Gram-negative sepsis, unspecified (principal); R65.21 Severe sepsis with septic shock; N17.9 Acute kidney failure, unspecified; N13.6 Pyonephrosis; E87.20 Acidosis, unspecified; Z16.24 Resistance to multiple antibiotics; K80.20 Calculus of gallbladder without cholecystitis without obstruction; Z20.822 Contact with and (suspected) exposure to COVID-19; E66.01 Morbid (severe) obesity due to excess calories; N18.30 Chronic kidney disease, stage 3 unspecified; B96.1 Klebsiella pneumoniae [K. pneumoniae] as the cause of diseases classified elsewhere; E11.22 Type 2 diabetes mellitus with diabetic chronic kidney disease; E11.42 Type 2 diabetes mellitus with diabetic polyneuropathy; E78.00 Pure hypercholesterolemia, unspecified; F41.9 Anxiety disorder, unspecified; I12.9 Hypertensive chronic kidney disease with stage 1 through stage 4 chronic kidney disease, or unspecified chronic kidney disease; I25.10 Atherosclerotic heart disease of native coronary artery without angina pectoris; N31.9 Neuromuscular dysfunction of bladder, unspecified; N40.0 Benign prostatic hyperplasia without lower urinary tract symptoms; Z96.642 Presence of left artificial hip joint; Z68.36 Body mass index [BMI] 36.0-36.9, adult; Z83.3 Family history of diabetes mellitus; Z87.440 Personal history of urinary (tract) infections; Z95.1 Presence of aortocoronary bypass graft; Z79.899 Other long term (current) drug therapy
CPT/HCPCS: 36415; 71045; 74176; 76770; 80048; 80053; 80061; 81001; 82306; 82607; 82948; 83036; 83605; 83735; 84100; 84145; 84443; 85025; 85027; 85610; 85730; 87040; 87086; 87186; 87635; 87804; 87880; 93005; 94664; C1894; G0378; J0692; J0696; J1650; J1815; J2185; J2470; J3370; J3475; J3490; J7030; J7120; C1750

== ENCOUNTER → 2024-06-28 | Outpatient (CLI) | payer OTHER ==
[~2024-06-28] MED LIST changes: -LEVO750T68 PO
== END | disposition home or self-care (01) ==
LOC: RAH 11:43
PROVIDERS: ATTEND Urology
DX: N20.0 Calculus of kidney (principal); M47.815 Spondylosis without myelopathy or radiculopathy, thoracolumbar region; Z96.642 Presence of left artificial hip joint
CPT/HCPCS: 74018; 76100

== ENCOUNTER → 2024-07-27 | Outpatient (CLI) | payer OTHER | END | disposition home or self-care (01) | LOC: RAH 11:22 | PROVIDERS: ATTEND Urology | DX: N20.0 Calculus of kidney (principal); M47.816 Spondylosis without myelopathy or radiculopathy, lumbar region; Z96.642 Presence of left artificial hip joint | CPT/HCPCS: 74018; 76100 ==

== ENCOUNTER 2024-12-13 17:13 | Emergency (ER) | payer OTHER ==
[~2024-12-13] VITALS: Ht 182.9 cm; Wt 126.1 kg
--- NOTE | 2024-12-13 18:03 | ERN ---
ED Note History of Present Illness Stated Complaint: LOWER EXTREMITY WEAKNESS Chief Complaint: Lower Extremity Pain/Injury Time Seen by MD: 17:16 Time Seen by Midlevel: 17:16 Dictation: The patient is a 69-year-old male with a history of paraplegia status post lumbar laminectomy in 2022, chronic urinary or fecal incontinence, CABG presents to the emergency department with worsen upper and lower extremity weakness. Patient reports he is wheelchair-bound but normally was able to pick himself up from the wheelchair to the shower with the his hands. Patient is still continuing getting physical therapy and reports he feels like he might have overdid it on the last session. Denies any falls or traumas. Denies any pain. Denies any fevers or any other complaints. Allergies: Coded Allergies: No Known Drug Allergies (Unverified Allergy, Unknown, 12/08/15) Home Meds Active Scripts Dicyclomine HCl (Bentyl) 20 Mg Tab, 20 MG PO QID PRN for ABDOMINAL PAIN for 10 Days, #30 TAB Prov:SILVINO WORTHINGTON MIRROR SILVERER 02/14/24 Reported Medications Tamsulosin HCl (Flomax) 0.4 Mg Cap.er.24h, 0.4 MG PO DAILY, CAPSULE.DR 02/11/24 Pregabalin (Pregabalin) 100 Mg Capsule, 100 MG PO TID PRN for PAIN, CAP 02/11/24 Famotidine (Famotidine) 20 Mg Tablet, 20 MG PO HS, TAB 02/11/24 Olmesartan Medoxomil (Olmesartan Medoxomil) 5 Mg Tablet, 5 MG PO DAILY, TAB 02/11/24 Metformin HCl (Metformin HCl ER) 1,000 Mg Tab.er.24, 1000 MG PO DAILYDINNER 02/11/24 Furosemide (Furosemide) 20 Mg Tablet, 20 MG PO DAILY, TAB 02/11/24 Ferrous Sulfate (Ferosul) 325 Mg (65 Mg Iron) Tablet, 325 MG PO DAILY, TAB 02/11/24 Allopurinol (Allopurinol) 100 Mg Tablet, 100 MG PO HS, TAB 09/15/23 Atorvastatin Calcium (Atorvastatin Calcium) 40 Mg Tablet, 40 MG PO HS, TAB 08/26/23 Aspirin (ASPIRIN) 325 Mg Tablet, 325 MG PO DAILY, TAB 08/26/23 Potassium Chloride (Potassium Chloride) 20 Meq Tab.er.prt, 20 MEQ PO AM 10/24/23 Docusate Sodium (Stool Softener) 100 Mg Capsule, 100 MG PO BID, CAP 08/26/23 Past Medical History Past Medical History: Diabetes-Type II, High Cholesterol, Heart Disease, Hypertension Additional Past Medical Hx: BPH Surgical History: CABG, Other Surgical History Other: SPINAL SX, BACK SX Social History: Negative, Lives with family RN Note Reviewed/Agreed w/PFSH: Yes Review of System Dictation Constitutional: Negative for fever,chills, and weight loss Eyes: Negative for injury, pain,redness, and discharge ENT: Negative for injury,pain or swelling Cardiovascular: Negative for chest pain, palpitations, and edema Respiratory: Negative for shortness of breath, cough, and wheezing, Abdomen/GI: Negative for abdominal pain, nausea, vomiting, diarrhea, and constipation Back: Negative for injury and pain : Negative for injury, bleeding and discharge MS/Extremity: Negative for injury and deformity Skin: Negative for rash, and discoloration Neuro: Negative for headache, numbness, tingling, and seizure positive for lower extremity weakness Psych: Negative for suicide ideation, homicidal ideation, and hallucinations Initial Vital Sign VS Vital Signs Date Time Temp Pulse Resp B/P (MAP) Pulse Ox O2 Delivery O2 Flow Rate FiO2 12/13/24 17:14 98.2 64 16 172/67 98 Room Air 0 12/13/24 17:27 21 Physical Exam Dictation Vital Signs reviewed General Appearance: Alert, oriented x 3, no acute distress, well developed, nourished. Head and Face: non-traumatic. Eyes: PERRL, pink conjunctivas, eyelid no trauma, anterior chamber with arcus senilis. Ears: Pinnas intact and no signs of trauma or erythema ear canals clear and no discharge TM no erythema Nose: No discharge, no bleeding. Oropharynx: Mouth normal, tongue pink. pharynx clear,no erythema, tonsils no exudates, no abscesses noted, mucous membrane moist Neck: Supple, non-tender, no thyromegaly, no masses, no JVD, no bruits Breast:Deferred Chest:No tenderness, no crepitus, no paradoxical movement, no retractions Lungs:Clear, well-ventilated, symmetric, no rales, no wheezing, no rhonchi, no stridor, good breath sounds bilaterally Heart: Regular rate, regular rhythm, no murmur, no gallops Vascular: no peripheral edema, Abdomen: Soft, positive bowel sounds, nondistended, no guarding, nontender, no rebound, no masses no hepatomegaly, no splenomegaly, no White's sign, no hernias. Rectal: Deferred Genital: Deferred Neurological: Normal speech, full range of motion to upper extremities, sensory function intact , unable to move bilateral legs against gravity Musculoskeletal: Neck nontender, full range of motion, back nontender, full range of motion, Extremities: nontender, full range of motion Skin: Color pink, dry, no turgor, no rash, no lacerations, no abrasions, no contusions. Lymphatic: Deferred Results (Laboratory/Radiology) Laboratory/Radiology Laboratory Tests Test 12/13/24 19:16 12/13/24 20:05 White Blood Count 15.2 K/uL (4.8-10.8) H Red Blood Count 5.51 MIL/uL (4.50-6.20) Hemoglobin 15.4 g/dL (14.0-18.0) Hematocrit 47.0 % (42-54) Mean Corpuscular Volume 85.3 fL (79-99) Mean Corpuscular Hemoglobin 27.9 pg (27.0-33.0) Mean Corpuscular Hemoglobin Concent 32.8 g/dL (32.0-36.0) Red Cell Distribution Width 15.4 % (11.0-15.5) Platelet Count 281 K/uL (130-400) Mean Platelet Volume 9.5 fL (7.5-10.5) Immature Granulocyte % (Auto) 0.9 % (0-1) Neutrophils (%) (Auto) 74.2 % (40.0-77.0) Lymphocytes (%) (Auto) 16.4 % (21.0-51.0) L Monocytes (%) (Auto) 7.3 % (3.0-13.0) Eosinophils (%) (Auto) 0.7 % (0.0-8.0) Basophils (%) (Auto) 0.5 % (0.0-5.0) Neutrophils # (Auto) 11.3 K/uL (1.8-7.7) H Lymphocytes # (Auto) 2.5 K/uL (1.0-4.8) Monocytes # (Auto) 1.1 K/uL (0.1-1.0) H Eosinophils # (Auto) 0.10 K/uL (0.00-0.70) Basophils # (Auto) 0.07 K/uL (0.00-0.20) Absolute Immature Granulocyte (auto 0.14 K/uL (0-1) Nucleated Red Blood Cells 0.0 % (0.0-0.19) Sodium Level 136 mmol/L (136-145) Potassium Level 4.7 mmol/L (3.5-5.1) Chloride Level 100 mmol/L (101-111) L Carbon Dioxide Level 29 mmol/L (21-32) Blood Urea Nitrogen 42 mg/dL (7-18) H Creatinine 1.6 mg/dL (0.5-1.3) H Glomerular Filtration Rate Calc 47 mL/min (>90) Random Glucose 149 mg/dL (70-105) H Total Calcium 10.0 mg/dL (8.5-10.1) Total Creatine Kinase 55 U/L (21-232) # Urine Color YELLOW (YELLOW) Urine Appearance CLEAR (CLEAR) Urine pH 5.0 (5.0-8.0) Urine Specific [place] 1.011 (1.001-1.031) Urine Protein NEGATIVE mg/dL (NEGATIVE) Urine Glucose (UA) NEGATIVE mg/dL (NEGATIVE) Urine Ketones NEGATIVE mg/dL (NEGATIVE) Urine Occult Blood SMALL (NEGATIVE) H Urine Nitrate NEGATIVE (NEGATIVE) Urine Bilirubin NEGATIVE mg/dL (NEGATIVE) Urine Urobilinogen 0.2 mg/dL (0.2-1.0) Urine Leukocyte Esterase 500 Yariel/uL (NEGATIVE) H Urine RBC 11-25 /HPF (0-1) H Urine WBC 51-100 /HPF (0-1) H Urine Squamous Epithelial Cells RARE /HPF (0-2) Urine Bacteria None /HPF (None Seen) Urine Opiates Screen NEGATIVE (NEGATIVE) Urine Barbiturates Screen NEGATIVE (NEGATIVE) Urine Phencyclidine Screen NEGATIVE (NEGATIVE) Urine Amphetamines Screen NEGATIVE (NEGATIVE) Urine Benzodiazepines Screen NEGATIVE (NEGATIVE) Urine Cocaine Screen NEGATIVE (NEGATIVE) Urine Marijuana (THC) Screen NEGATIVE (NEGATIVE) Labs Reviewed?: Yes ED Course ED Course Orders Procedure Category Date Status Time Ct Lumbar Spine W/O CT 12/13/24 Resulted Contrast 18:24 Cbc With Differential LAB 12/13/24 Complete 18:24 Basic Metabolic Panel LAB 12/13/24 Complete 18:24 Creatine Kinase, Total LAB 12/13/24 Complete 18:24 Urinalysis Profile LAB 12/13/24 Complete Catherized 19:42 Drug Screen Urine LAB 12/13/24 Complete 19:51 Culture Urine ALLI 12/13/24 In Process 20:37 Vital Signs Date Time Temp Pulse Resp B/P (MAP) Pulse Ox O2 Delivery O2 Flow Rate FiO2 12/13/24 20:08 98.6 55 18 128/77 97 Room Air* 0 21 12/13/24 18:23 98.2 68 17 129/83 98 Room Air* 0 21 12/13/24 17:44 98.2 67 17 127/83 98 Room Air* 0 21 12/13/24 17:27 66 18 167/56 98 Room Air* 0 21 12/13/24 17:14 98.2 64 16 172/67 98 Room Air 0 Medical Decision Making MDM The patient is a 69-year-old male with a history of paraplegia status post lumbar laminectomy in 2022, chronic urinary or fecal incontinence, CABG presents to the emergency department with worsen upper and lower extremity weakness. Patient reports he is wheelchair-bound but normally was able to pick himself up from the wheelchair to the shower with the his hands. Patient also reports bilateral finger tingling that has been going on for a month. And has been foll owing with the his primary doctor. Patient is still continuing getting physical therapy and reports he feels like he might have overdid it on the last session. Denies any falls or traumas. Denies any pain. Denies any fevers or any other complaints. Patient with chronic lower extremity weakness, paralysis. Patient has received and is receiving physical therapy. Patient in no acute distress, nontoxic appearance. Agrees to be discharged without any further studies and agrees to follow up with Neurosurgery. Patient is also beginning the process to be sent to rehabilitation center. Patient's daughter came in patient changes mind and states he does want a CT to evaluate for weakness. Patient also reports that he is a on day 5 or ertapenem im for uti and is getting managed by his pcp. CBC showed leukocytosis, no anemia, chemistry showed mild hypochloremia, GFR of 47. Reviewed patient's previous renal function it appears to be similar. Glucose of 149. Toxicology negative, urinalysis positive for leukocyte esterase. Patient is already being treated with antibiotics IM. CT showed no fractures, degenerative changes of the lumbar spine spondylosis. Patient no acute distress. Patient instructed to follow up with Neurosurgery. Differential diagnosis: Muscle strain, muscle weakness, carpal tunnel Need for hospitalization: Patient does not meet criteria for hospitalization. There are no social concerns with this patient. DX & DISP Disposition: Discharge Departure Impression: Primary Impression: Leg weakness Additional Impression: UTI (urinary tract infection) Condition: Stable Scripts Prednisone (Prednisone) 10 Mg Tablet 1 TAB PO BID for 7 Days, #14 TAB 0 Refills Prov: ANAYJEANE BABCOCK 12/13/24 Additional Instructions: Please follow up with Neurosurgery as soon as possible. Continue follow up with your doctor for treatment of UTI. If symptoms worsen please return to ER. FOLLOW-UP WITH PRIMARY CARE PROVIDER IN 1 TO 2 DAYS. TAKE MEDICATIONS DIRECTED HERE IN THE EMERGENCY ROOM. OKAY TO CONTINUE HOME MEDICATIONS UNLESS OTHERWISE DISCUSSED DURING YOUR VISIT IN THE EMERGENCY ROOM TODAY. RETURN TO YOUR NEAREST EMERGENCY ROOM IF SYMPTOMS WORSEN OR IF THERE IS NO IMPROVEMENT. CALL 911 IF YOU NEED IMMEDIATE ASSISTANCE. TAKE TYLENOL OR MOTRIN [id number] NEEDED AND IF NO CONTRAINDICATIONS ARE PRESENT. INCREASE ORAL HYDRATION. A WOUND CULTURE OR URINE CULTURE WAS ORDERED HERE IN THE EMERGENCY ROOM DEPARTMENT PLEASE FOLLOW-UP WITH PRIMARY CARE PROVIDER AND ADVISE THEM TO GET REPEAT PORTS FROM OUR FACILITY. IF YOU HAD ANY TACHO WRAP/SPLINTS THAT WERE APPLIED HERE, PLEASE DO NOT REMOVE THEM UNTIL YOU SEE YOUR PRIMARY CARE OR SPECIALTY. Referrals: LORETA OVIEDO MD (PCP) FELICITAS ELIAS MD Time of Disposition: 20:50 I have examined patient, & reviewed all documents, & agreed W/ the Diagnosis, and Plan ATTESTATION BY PHYSICIAN I PERFORMED THE SUBSTANTIVE PORTION OF THE VISIT. I HAVE REVIEWED AND PERSONALLY MADE AND APPROVED THE MANAGEMENT PLAN THAT IS DOCUMENTED IN THE NOTE BY MYSELF FOR THE A PP. I ACKNOWLEDGED FOR RESPONSIBILITY FOR THE PATIENT'S MANAGEMENT PLAN. JEANE CUEVA Dec 13, 2024 18:03
--- NOTE | 2024-12-13 18:41 | NUR ---
PT CAME IN WITH A [facility] ARRIVAL.
--- NOTE | 2024-12-13 19:20 | HMCIMG ---
CT LUMBAR SPINE W/O CONTRAST HISTORY: Lower extremity weakness COMPARISON: None TECHNIQUE: Multiple sequential axial images of the lumbar spine were obtained including post processing sagittal and coronal reconstruction images. Patient was not given contrast through intravenous route. FINDINGS: There are degenerative changes with lumbar spine spondylosis worse at L3-4, L4-5 and L5-S1 levels with disc space narrowing and central canal narrowing. Postlaminectomy changes are seen at L3-4, L4-5 and L5-S1 levels. There is no loss of vertebral height. Evaluation for disc and cord pathology is limited with CT study. No evidence of fracture or dislocation is seen. There is atherosclerosis. IMPRESSION: 1. No fracture is seen. There are degenerative changes with lumbar spine spondylosis worse at L3-4, L4-5 and L5-S1 levels with disc space narrowing and central canal narrowing. Postlaminectomy changes are seen at L3-4, L4-5 and L5-S1 levels CT was performed with one or more following dose reduction techniques: automated exposure control, adjustment of the mA and kv according to patient's size, or use of a iterative reconstruction technique.
[2024-12-13 19:25] LABS: BASOPHILS # (AUTO) 0.07 K/uL (0.00-0.20); BASOPHILS % (AUTO) 0.5 % (0.0-5.0); EOSINOPHILS % (AUTO) 0.7 % (0.0-8.0); IMMATURE GRANULOCYTE ABSOLUTE 0.14 K/uL (0-1); LYMPHOCYTES # (AUTO) 2.5 K/uL (1.0-4.8); LYMPHOCYTES % (AUTO) 16.4 % (21.0-51.0); MEAN CORPUSCULAR HEMOGLOBIN 27.9 pg (27.0-33.0); MEAN CORPUSCULAR HGB CONC 32.8 g/dL (32.0-36.0); MEAN CORPUSCULAR VOLUME 85.3 fL (79-99); MONOCYTES # (AUTO) 1.1 K/uL (0.1-1.0); MONOCYTES % (AUTO) 7.3 % (3.0-13.0); NEUTROPHILS # (AUTO) 11.3 K/uL (1.8-7.7); NEUTROPHILS % (AUTO) 74.2 % (40.0-77.0); PLATELET COUNT (AUTO) 281 K/uL (130-400); RED BLOOD CELL COUNT(AUTO) 5.51 MIL/uL (4.50-6.20); RED CELL DISTRIBUTION WIDTH 15.4 % (11.0-15.5); WHITE BLOOD COUNT (AUTO) 15.2 K/uL (4.8-10.8)
[2024-12-13 19:40] LABS: CREATININE 1.6 mg/dL (0.5-1.3); POTASSIUM 4.7 mmol/L (3.5-5.1)
[2024-12-13 20:08] VITALS: BP 128/77; PULSE 55; RESP 18; TEMP 98.6; O2SAT 97
[2024-12-13 20:33] LABS: APPEARANCE,URINE CLEAR (CLEAR); BILIRUBIN,URINE NEGATIVE (NEGATIVE); COLOR,URINE YELLOW (YELLOW); GLUCOSE, URINE (UA) NEGATIVE (NEGATIVE); KETONES,URINE NEGATIVE (NEGATIVE); LEUKOCYTE ESTERASE ,URINE 500 Leu/uL (NEGATIVE); NITRATE,URINE NEGATIVE (NEGATIVE); OCCULT BLOOD,URINE SMALL (NEGATIVE); PROTEIN,URINE NEGATIVE (NEGATIVE); UROBILINOGEN,URINE 0.2 mg/dL (0.2-1.0)
[2024-12-13 20:37] LABS: ADD UA MICROSCOPIC YES
[2024-12-13 20:39] LABS: MUCUS,URINE RARE LPF (None Seen); SQUAMOUS EPITHELIAL CELL,UR RARE /HPF (0-2); WBC,URINE 51-100 /HPF (0-1)
[2024-12-13 20:44] LABS: AMPHET/METH SCREEN,URINE NEGATIVE (NEGATIVE); BARBITURATE SCREEN, URINE NEGATIVE (NEGATIVE); BENZODIAZEPINES SCREEN,URINE NEGATIVE (NEGATIVE); CANNABINOID SCREEN,URINE NEGATIVE (NEGATIVE); COCAINE SCREEN,URINE NEGATIVE (NEGATIVE); OPIATE SCREEN,URINE NEGATIVE (NEGATIVE); PHENCYCLIDINE SCREEN,URINE NEGATIVE (NEGATIVE)
[2024-12-13] MEDS ORDERED: PRED10TA3 PO (20:51)
[2024-12-13] MEDS: dexaMETHasone SOD PHOSPHATE 4 MG/ML 1ML VIAL IV SCH (20:55)
== END 2024-12-14 03:42 | disposition home or self-care (01) ==
LOC: EDH 17:13
DX: N39.0 Urinary tract infection, site not specified (principal); R53.1 Weakness; E11.9 Type 2 diabetes mellitus without complications; E78.00 Pure hypercholesterolemia, unspecified; I10 Essential (primary) hypertension; Z79.82 Long term (current) use of aspirin; Z79.899 Other long term (current) drug therapy; Z95.1 Presence of aortocoronary bypass graft
CPT/HCPCS: 99285; 96374; 72131; 82550; 80048; 80305; 85025; 87086; 81001; 36415; J1100